=== PATIENT | male | born 1935 | race Caucasian/White ===

== ENCOUNTER → 2022-12-11 12:39 | Outpatient (CLI) | payer MEDICARE, SELFPAY ==
--- NOTE | 2022-12-11 12:41 | DI.MRI.S_ITS ---
PROCEDURE: MR LUMBAR SPINE WO CON INDICATIONS: Chronic low back pain with radiculopathy R>L TECHNIQUE: Noncontrast sagittal T1 spin echo and T2 fast echo, sagittal STIR, and T2 fast spin echo through the lumbar spine. In cases with scoliosis, additional coronal T2 fast spin echo may be performed. COMPARISON: None. FINDINGS: Image quality: Excellent. Alignment and Curvature: Dextroscoliosis of the lumbar spine with a Cardoza angle of 17?. No acute abnormality. Bone Marrow: Multilevel moderately severe degenerative changes. Disc space narrowing at L2-3 with partial fusion at this level. Spinal Cord: Conus medullaris terminates at the L1 level. Visualized cord demonstrates normal signal and size. Paraspinous Soft Tissues: No paravertebral masses. T12-L1: Disc space narrowing and endplate degenerative changes with disc osteophytes and facet hypertrophy. This causes moderate bilateral foraminal stenosis. The central canal is patent. L1-L2: Disc space narrowing and endplate degenerative changes with disc osteophytes and facet hypertrophy. This causes moderate bilateral foraminal stenosis. The central canal is patent. L2-L3: This disc level is partially fused on the right side with bone against bone. There is mild right and moderate left foraminal stenosis. Encroachment upon the left lateral recess impinges upon the exiting L3 nerve root. The central canal has moderate stenosis. L3-L4: Diffuse disc bulge and facet hypertrophy cause moderate right and mild left foraminal stenosis. The central canal is patent. L4-L5: Diffuse disc bulge and grade 1 anterolisthesis with facet hypertrophy bilaterally and ligamentum flavum hypertrophy cause severe central canal stenosis. There is mild bilateral foraminal stenosis. L5-S1: Diffuse disc bulge and disc osteophytes with facet hypertrophy cause moderate right and mild left foraminal stenosis. The central canal is patent. IMPRESSION: 1. 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 Central canal stenosis is moderate at L2-3 and severe at L4-5. 2. No abnormal cord signal. 3. No acute abnormality. Dictated by: Bright Colin M.D. on 12/12/2022 at 9:22 Approved by: Bright Colin M.D. on 12/12/2022 at 9:39
== END ==
PROVIDERS: PCP Student in an Organized Health Care Education/Training Program; Referring Provider Anesthesiology; Visit Provider Anesthesiology
DX: M54.16 Radiculopathy, lumbar region (principal); M48.061 Spinal stenosis, lumbar region without neurogenic claudication
CPT/HCPCS: 72148

== ENCOUNTER 2023-01-25 13:26 | Outpatient (CLI) | payer MEDICARE, SELFPAY ==
[2023-01-25] VITALS (9 sets, daily range): BP systolic 170–208; BP diastolic 81–100; PULSE 91–99; RESP 12–20; TEMP 36.6; O2SAT 95–97
--- NOTE | 2023-01-25 | DI.RAD.S_ITS ---
PROCEDURE: PAIN L/S TRANSFORAMINAL INJECT INDICATIONS: Radiculopathy, lumbar region COMPARISON: None. FINDINGS: Fluoroscopic spot filming was performed to verify placement of spinal needles at the right L4-5 and L5-S1 level(s), as labeled on the films. Appropriate location(s) of the needle tip(s) was confirmed by injection of iodinated contrast. IMPRESSION: Fluoroscopy used for localization of L4-5 and L5-S1 facet joints. Dictated by: Angelika Levy M.D. on 01/25/2023 at 17:31 Approved by: Angelika Levy M.D. on 01/25/2023 at 17:31
[2023-01-25] MEDS: DEXAMETHASONE 10 MG/ML VIAL 20 MG INJ (14:04)
[2023-01-25] MEDS: IOPAMIDOL 15 ML VIAL 3 ML INJ (14:05)
--- NOTE | 2023-01-25 17:02 | P.PCN_ITS ---
Date/Time/Diagnoses Date of procedure: 01/25/23 Time of procedure: 13:30 Procedure Notes Physician: Migue Louis Total Fluoroscopy time (seconds): 49 Total sedation minutes: 0 Procedure in detail & Post-procedure care: Right L4-5 and L5-S1 Transforaminal Epidural Steroid Injection Indications: Woo is presenting for treatment of lumbar radiculopathy with low back and leg pain. Preoperative diagnosis: Right lumbar radiculopathy Postoperative diagnosis: Same Focused Examination: Ax3 Mood and affect are normal Vital Signs: VSS Consent: Following review of allergies and potential side effects/complications, including, but not necessarily limited to, infection, allergic reaction, local tissue breakdown, stroke, temporary or permanent nerve injury, paralysis, and possible , the patient indicated that they understood and agreed to proceed.? An informed consent document was signed by the patient, witnessed by a nurse and placed in the patient's chart.? Additionally, other treatment options including medications and physical therapy were reviewed with the patient. All questions were answered. Site was then marked. Anesthesia: Local Position: Prone Monitoring: NIBP, Pulse oximetry, 3 lead EKG Needle used: 22G 3.5 inch spinal needle Contrast: Isovue 300M Injectate: 10 mg Dexamethasone mixed with 1% lidocaine 1 ml and Normal Saline 1 ml per site Technique: The skin was prepped with chloraprep and draped in a sterile fashion. Time out was performed as per protocol. Oxygen applied via NC. Skin and subcutaneous structures of the needle entry site were infiltrated with 3mL of lidocaine 1%. Under fluoroscopic guidance, using an ipsilateral oblique view,?a 22 gauge 3.5 inch needle was advanced to the base of the L4?pedicle.? The needle was advanced to the superio-posterior aspect of the neural foramen under lateral view.? Oblique and AP views were rechecked. No paresthesias noted by the patient during needle placement. In AP view and utilizing real-time digital subtraction fluoroscopy, 2 ml contrast was slowly injected. Epidural spread was observed without evidence for intravascular nor intrathecal uptake. Contrast spread was seen craniocaudally. The above injectate was then administered, and the needle was subsequently withdrawn. Skin and subcutaneous structures of the needle entry site were infiltrated with 3mL of lidocaine 1%. Under fluoroscopic guidance, using an ipsilateral oblique view,?a 22 gauge 3.5 inch needle was advanced to the base of the L5?pedicle.? The needle was advanced to the superio-posterior aspect of the neural foramen under lateral view.? Oblique and AP views were rechecked. No paresthesias noted by the patient during needle placement. In AP view and utilizing real-time digital subtraction fluoroscopy, 2 ml contrast was slowly injected. Epidural spread was observed without evidence for intravascular nor intrathecal uptake. Contrast spread was seen craniocaudally. The above injectate was then administered, and the needle was subsequently withdrawn.Band-Aids applied to injection sites. EBL: less than 1 ml Complications: None Post Procedure: Patient was taken to the recovery and monitored. The patient was provided a Pain Log to continue to record the patient's response to the target- specific procedure prior to the patient's follow-up visit with the referring physician. Patient was stable upon discharge. Detailed post procedure instructions were provided. Patient was asked to call in the event of worsening pain, fever, weakness, numbness or bladder or bowel incontinence.
== END 2023-01-25 14:45 | disposition home or self-care (01) ==
LOC: RAD 13:27
PROVIDERS: PCP Student in an Organized Health Care Education/Training Program; Referring Provider Anesthesiology; Visit Provider Anesthesiology
DX: M54.16 Radiculopathy, lumbar region (principal)
CPT/HCPCS: 64483; 64484; J1100

== ENCOUNTER 2023-02-22 13:06 | Outpatient (CLI) | payer MEDICARE, SELFPAY ==
--- NOTE | 2023-02-22 13:09 | DI.RAD.S_ITS ---
PROCEDURE: PAIN L INTERLAMINAR/CAUDAL INJ INDICATIONS: SPONDYLOSIS COMPARISON: [facility], XA, PAIN L/S TRANSFORAMINAL INJECT, 01/25/2023, 14:02. FINDINGS: Fluoroscopic spot filming was performed to verify placement of a spinal needle at the L4-L5 level, as labeled on the films. Appropriate location of the needle tip was confirmed by injection of iodinated contrast. IMPRESSION: Intraprocedural examination within normal limits. Dictated by: Vel Cantu M.D. on 02/22/2023 at 15:15 Approved by: Vel Cantu M.D. on 02/22/2023 at 15:15
[2023-02-22 13:15] VITALS: BP 166/84; PULSE 95; RESP 18; TEMP 37.3; O2SAT 96
[2023-02-22 13:54] VITALS: BP 179/92; PULSE 92; RESP 17; O2SAT 96
[2023-02-22] MEDS: DEXAMETHASONE 10 MG/ML VIAL 20 MG INJ (13:57)
[2023-02-22] MEDS: BUPIVACAINE 0.25% (PF) VIAL 5 ML INJ (13:57)
[2023-02-22] MEDS: IOPAMIDOL 15 ML VIAL 3 ML INJ (13:57)
[2023-02-22 13:59] VITALS: BP 178/88; PULSE 88; RESP 17; O2SAT 97
[2023-02-22 14:04] VITALS: BP 159/80; PULSE 87; RESP 13; O2SAT 97
[2023-02-22 14:09] VITALS: BP 159/79; PULSE 87; RESP 17; O2SAT 96
[2023-02-22 14:17] VITALS: BP 177/92; PULSE 96; RESP 18; O2SAT 98
--- NOTE | 2023-02-22 14:29 | PC.NURSE ---
Pt c/o some weakness upon standing for discharge, will continue to monitor and care and recheck patients status in a few minutes for safe discharge. Pt states understanding.
--- NOTE | 2023-02-22 14:33 | PC.NURSE ---
Pt states his weakness is better and [place] still feels [place] when he gets out of the car to get food that he will stay in the car. Pt states understanding.
--- NOTE | 2023-02-22 15:06 | P.PCN_ITS ---
Date/Time/Diagnoses Date of procedure: 02/22/23 Time of procedure: 14:00 Procedure Notes Physician: Migue Louis Total Fluoroscopy time (seconds): 23 Total sedation minutes: 0 Procedure in detail & Post-procedure care: L4-5 Interlaminar Epidural Steroid Injection Indications: Woo is presenting for treatment of lumbar radiculopathy with low back and leg pain. Preoperative diagnosis: Lumbar radiculopathy Postoperative diagnosis: Same Focused Examination: Ax3 Mood and affect are normal Vital Signs: VSS Consent: Following review of allergies and potential side effects/complications, including, but not necessarily limited to, infection, allergic reaction, local tissue breakdown, stroke, temporary or permanent nerve injury, paralysis, and possible , the patient indicated that they understood and agreed to proceed.? An informed consent document was signed by the patient, witnessed by a nurse and placed in the patient's chart.? Additionally, other treatment options including medications and physical therapy were reviewed with the patient. All questions were answered. Site was then marked. Anesthesia: Local Position: Prone Monitoring: NIBP, Pulse oximetry, 3 lead EKG Needle used: 18 G 3.5? Tuohy Contrast: Isovue 300M Injectate: Dexamethasone 15 mg with 0.25% Bupivacaine 1.5 mL Technique: The skin was prepped with chloraprep and then draped in a sterile fashion. Time out was performed as per protocol. Oxygen applied via NC. Skin and subcutaneous structures of the needle entry site was then infiltrated with 3 mL of lidocaine 1%. Under AP, lateral and contralateral oblique fluoroscopic control, the Tuohy needle was guided into the L4-5 epidural space. The space was accessed with loss of resistance technique. Isovue 300M was then injected and the spread was consistent with the epidural space. There was no evidence for intravascular or intrathecal uptake. After negative aspiration, the above- mentioned injectate was then slowly administered and the needle withdrawn. The patient expressed no unusual discomfort or paresthesias during the injection. Band-Aids applied to injection sites. EBL: less than 1 ml Complications: None Post Procedure: Patient was taken to the recovery and monitored. The patient was provided a Pain Log to continue to record the patient's response to the target- specific procedure prior to the patient's follow-up visit with the referring physician. Patient was stable upon discharge. Detailed post procedure instructions were provided. Patient was asked to call in the event of worsening pain, fever, weakness, numbness or bladder or bowel incontinence.
== END 2023-02-22 14:54 | disposition home or self-care (01) ==
LOC: RAD 13:07
PROVIDERS: PCP Student in an Organized Health Care Education/Training Program; Referring Provider Anesthesiology; Visit Provider Anesthesiology
DX: M54.16 Radiculopathy, lumbar region (principal)
CPT/HCPCS: 62323; J1100; J3490